=== PATIENT | male | born 1960 | race Caucasian/White ===

== ENCOUNTER 2016-07-25 19:17 | Emergency (ER) | payer BC ==
[~2016-07-25] VITALS: Ht 188 cm; Wt 80.0 kg
[~2016-07-25 19:17] MED LIST: ALBUTEROL0.83 MG/ML IH; AMOXICILLIN 50500 MG PO; CEPHALEXIN500 M1 PO; IBREN600 MG PO; LEVAQUIN 5500 MG/TA1 PO; NO HOME MEDICATIONS; NORCO 325 MG-51 TAB PO; PERCOCET 325 MG1 TA2 PO; PROVENTIL0.09 MG/A1 IH; TUSS PO; TYLENOL 325MG325 MG PO; ZOFRAN ODT8 MG PO; ZYRTEC 10MG10 MG PO
[2016-07-25 19:29] VITALS: TEMP 98.7
[2016-07-25] MEDS ORDERED: K-TAB10 PO (19:42)
[2016-07-25] MEDS ORDERED: FISH OIL 500 M1 EAC1 PO (19:43)
[2016-07-25] MEDS ORDERED: MULTI VITAMINS1 TAB PO (19:43)
[2016-07-25] MEDS ORDERED: ZOFRAN ODT8 MG PO (21:39)
[2016-07-25] MEDS ORDERED: CEPHALEXIN500 M1 PO (21:39)
[2016-07-25] MEDS ORDERED: PERCOCET 325 MG1 TA2 PO (21:39)
[2016-07-25 21:53] VITALS: BP 123/81; PULSE 74
== END 2016-07-25 22:21 | disposition home or self-care (01) ==
LOC: COL.ER 19:17
DX: S52.501A Unspecified fracture of the lower end of right radius, initial encounter for closed fracture (principal); S51.811A Laceration without foreign body of right forearm, initial encounter; W55.29XA Other contact with cow, initial encounter; Y92.79 Other farm location as the place of occurrence of the external cause; Z23 Encounter for immunization; J44.9 Chronic obstructive pulmonary disease, unspecified; F17.210 Nicotine dependence, cigarettes, uncomplicated
CPT/HCPCS: J0690; J2270; J2405; J3010; J7030

== ENCOUNTER → 2022-11-28 | Outpatient (CLI) | payer OTHER ==
[~2022-11-28] MED LIST changes: +FISH OIL 500 M1 EAC1 PO; +K-TAB10 PO; +MULTI VITAMINS1 TAB PO; +NORVASC 5MG5 MG/TAB PO
== END ==
LOC: COL.RAD 13:32
DX: Z12.2 Encounter for screening for malignant neoplasm of respiratory organs (principal); Z87.891 Personal history of nicotine dependence

== ENCOUNTER 2023-11-09 11:48 | Emergency (ER) | payer BC ==
[~2023-11-09] VITALS: Ht 188 cm; Wt 71.4 kg
[2023-11-09 11:55] VITALS: TEMP 98.3
[2023-11-09 14:14] VITALS: BP 132/90; PULSE 75
== END 2023-11-09 14:15 | disposition home or self-care (01) ==
LOC: COL.ER 11:48
DX: M70.21 Olecranon bursitis, right elbow (principal); F17.200 Nicotine dependence, unspecified, uncomplicated; W22.8XXA Striking against or struck by other objects, initial encounter